=== PATIENT | female | born 1955 | race Caucasian/White ===

== ENCOUNTER 2022-12-12 21:05 | Inpatient (IN) | payer MEDICARE, MEDICAID ==
[~2022-12-12] VITALS: Ht 157.5 cm; Wt 88.0 kg
[~2022-12-12 21:05] MED LIST: ASPI-1406 MT; ATOR10TA69 MT; LEVO500T2 MT
[2022-12-12 22:15] LABS: HEMATOCRIT. 33.9 % (36.0-48.0); HEMOGLOBIN. 11.5 g/dL (12.0-16.0); MEAN CORPUSCULAR HEMOGLOBIN 29.9 pg (28.0-32.0); MEAN CORPUSCULAR VOLUME 88.3 fL (81.0-99.0); MEAN PLATELET VOLUME 7.4 fl (7.4-10.4); PLATELET 137 x1000/uL (130-400); RED BLOOD CELL COUNT 3.84 mill/uL (4.2-5.4); RED CELL DISTRIBUTION WIDTH 14.6 % (11.6-14.6)
[2022-12-12] MEDS ORDERED: CEFTRIAXONE 1GM PREMIX 50 ML IV ONE (22:15)
[2022-12-12] MEDS ORDERED: SODIUM CHLORIDE 0.9% 1000ML BAG (SEPSIS BOLUS) IV ONE (22:15)
[2022-12-12] MEDS ORDERED: AZITHROMYCIN 500MG/250ML 250 ML IV ONE (22:15)
[2022-12-12 22:26] LABS: CHLORIDE 107 mEq/L (98-107)
[2022-12-12] MEDS ORDERED: ASPIRIN 81MG TABLET PO ONE (22:30)
[2022-12-12 23:02] LABS: PLATELET ESTIMATE NORMAL
[2022-12-13] MEDS ORDERED: ASPIRIN 81MG TABLET PO NR (02:00)
[2022-12-13] MEDS ORDERED: AZITHROMYCIN 500MG/250ML 250 ML IV NR (02:00)
[2022-12-13] MEDS ORDERED: CEFTRIAXONE 1GM PREMIX 50 ML IV NR (02:00)
[2022-12-13] MEDS ORDERED: DEXTROSE 50% WATER 50ML SYRINGE IV PRN (02:30)
[2022-12-13] MEDS ORDERED: CLONIDINE 0.1MG TABLET PO PRN (02:30)
[2022-12-13] MEDS ORDERED: ACETAMINOPHEN 325MG TABLET PO PRN (02:30)
[2022-12-13] MEDS ORDERED: CEFTRIAXONE 1GM PREMIX 50 ML IV ONE (02:30)
[2022-12-13] MEDS ORDERED: ONDANSETRON HCL 4MG/2ML INJ IV PRN (02:30)
[2022-12-13] MEDS ORDERED: MECLIZINE 25MG TABLET PO NR (02:30)
[2022-12-13] MEDS ORDERED: IPRATROPIUM/ALBUTEROL 0.5-3(2.5)MG/3ML NEB HHN PRN (02:30)
[2022-12-13] MEDS ORDERED: IPRATROPIUM BROMIDE (0.02%) 0.5MG/2.5ML NEB HHN PRN (02:45)
[2022-12-13] MEDS ORDERED: ALBUTEROL (0.083%) 2.5MG/3ML NEB HHN PRN (02:45)
[2022-12-13 03:11] LABS: CLARITY URINE CLEAR (CLEAR); COLOR URINE YELLOW (YELLOW); KETONES URINE NEGATIVE (NEGATIVE); LEUKOCYTE ESTERASE URINE 1+ (NEGATIVE); NITRITE URINE POSITIVE (NEGATIVE); OCCULT BLOOD URINE NEGATIVE (NEGATIVE); PH URINE 5.5 (4.5-8.0); PROTEIN URINE TRACE (NEGATIVE); SPECIFIC GRAVITY URINE 1.016 (1.005-1.030)
[2022-12-13 03:30] LABS: *AMPHETAMINES SCREEN URINE NEGATIVE (NEGATIVE); *BARBITURATES SCREEN URINE NEGATIVE (NEGATIVE); *BENZODIAZEPINES SCREEN URINE NEGATIVE (NEGATIVE); *COCAINE SCREEN URINE NEGATIVE (NEGATIVE); CANNABINOID URINE SCREEN NEGATIVE (NEGATIVE); METHADONE URINE SCREEN NEGATIVE (NEGATIVE); OPIATES URINE SCREEN NEGATIVE (NEGATIVE); PHENCYCLIDINE URINE SCREEN NEGATIVE (NEGATIVE)
[2022-12-13] MEDS: ACETAMINOPHEN 325MG TABLET PO PRN ×2 (03:47→07:37)
[2022-12-13 03:49] LABS: D-DIMER 1.09 mg/L FEU (<0.50); PROTHROMBIN TIME 10.3 sec (9.6-11.0)
[2022-12-13 03:56] LABS: PHOSPHORUS 3.3 mg/dL (2.5-4.9)
[2022-12-13 04:24] LABS: VITAMIN B12 SERUM 552 pg/mL (211-911)
[2022-12-13] MEDS ORDERED: MAGNESIUM 2 G PREMIX 50 ML IV NR (04:30)
[2022-12-13] MEDS: BLOOD SUGAR DIAGNOSTIC STRIP TEST SCH ×4 (06:30→21:56)
[2022-12-13] MEDS: LOSARTAN POTASSIUM 100 MG TABLET PO SCH (09:00)
[2022-12-13] MEDS: HYDRALAZINE HCL 25MG TABLET PO SCH ×2 (09:00→21:56)
[2022-12-13] MEDS: AMLODIPINE 10MG TABLET PO SCH (09:00)
[2022-12-13 11:00] VITALS: BP 109/52
[2022-12-13 11:24] VITALS: BP 109/52
[2022-12-13] MEDS: GABAPENTIN 300MG CAPSULE PO SCH ×2 (11:27→21:52)
[2022-12-13] MEDS: CLOPIDOGREL 75MG TABLET PO SCH (11:27)
[2022-12-13] MEDS: ENOXAPARIN 30MG/0.3ML SYR SUBCUT SCH ×2 (11:29→21:52)
[2022-12-13] MEDS: PANTOPRAZOLE SODIUM 40 MG/VIAL IV SCH (11:32)
[2022-12-13] MEDS: INSULIN LISPRO 100 UNITS/ML SUBCUT SCH ×3 (11:33→21:57)
[2022-12-13] MEDS ORDERED: CLOP-31 MT (13:27)
[2022-12-13] MEDS ORDERED: SITA100T11 MT (13:27)
[2022-12-13] MEDS ORDERED: GABA-532 MT (13:27)
[2022-12-13] MEDS ORDERED: OMEP40CA20 MT (13:27)
[2022-12-13] MEDS ORDERED: LOSA100T32 MT (13:27)
[2022-12-13] MEDS ORDERED: HYDR-4134 MT (13:27)
[2022-12-13] MEDS ORDERED: ATOR-2 MT (13:27)
[2022-12-13] MEDS ORDERED: AMLO10TA80 MT (13:27)
[2022-12-13] MEDS ORDERED: MULT-1146 MT (13:27)
[2022-12-13] MEDS: DEXT 5%/0.9% NACL 1,000 ML IV SCH (14:37)
[2022-12-13 15:43] VITALS: BP 112/53
[2022-12-13 20:00] VITALS: BP 136/73
[2022-12-13 20:50] VITALS: BP 125/53
[2022-12-13] MEDS ORDERED: INSULIN LISPRO 100 UNITS/ML SUBCUT SCH (21:00)
[2022-12-13] MEDS ORDERED: ATORVASTATIN CALCIUM 40MG TABLET PO SCH (21:00)
[2022-12-13] MEDS: ATORVASTATIN CALCIUM 40MG TABLET PO SCH (21:56)
[2022-12-14 00:24] VITALS: BP 126/56
[2022-12-14] MEDS: AZITHROMYCIN 500MG in DEXTROSE 5% WATER 250ML IV SCH (00:59)
[2022-12-14] MEDS ORDERED: AZITHROMYCIN 500MG/250ML 250 ML IV SCH (03:00)
[2022-12-14] MEDS: CEFTRIAXONE 1,000 MG in DEXTROSE 5% WATER 50 ML IV SCH (03:08)
[2022-12-14 04:00] VITALS: BP 122/57
[2022-12-14] MEDS: DEXT 5%/0.9% NACL 1,000 ML IV SCH ×2 (05:14→20:19)
[2022-12-14] MEDS: GABAPENTIN 300MG CAPSULE PO SCH ×3 (05:34→20:18)
[2022-12-14 06:32] LABS: BASOPHILS % 0.2 % (0.0-2.0); EOSINOPHILS % 2.8 % (0.0-5.0); HEMATOCRIT. 27.4 % (36.0-48.0); HEMOGLOBIN. 9.4 g/dL (12.0-16.0); LYMPHOCYTES % 21.2 % (20.0-50.0); MEAN CORPUSCULAR HEMOGLOBIN 30.9 pg (28.0-32.0); MEAN CORPUSCULAR VOLUME 90.5 fL (81.0-99.0); NEUTROPHILS % 64.8 % (40.0-76.0); PLATELET 94 x1000/uL (130-400); RED BLOOD CELL COUNT 3.03 mill/uL (4.2-5.4); RED CELL DISTRIBUTION WIDTH 14.6 % (11.6-14.6)
[2022-12-14 07:30] LABS: CHLORIDE 112 mEq/L (98-107)
[2022-12-14] MEDS: BLOOD SUGAR DIAGNOSTIC STRIP TEST SCH ×4 (07:40→20:18)
[2022-12-14 07:48] LABS: HDL CHOLESTEROL 40 mg/dL (40-59); LDL CHOLESTEROL 46 mg/dL (5-100); T4 FREE 1.19 ng/dL (0.76-1.46)
[2022-12-14 08:00] VITALS: BP 128/79
[2022-12-14 08:11] LABS: VITAMIN D 25-OH 50.5 ng/mL (30.0-100.0)
[2022-12-14] MEDS: ASPIRIN 81MG EC TABLET PO SCH (09:35)
[2022-12-14] MEDS: ENOXAPARIN 30MG/0.3ML SYR SUBCUT SCH (09:35)
[2022-12-14] MEDS: HYDRALAZINE HCL 25MG TABLET PO SCH ×2 (09:36→20:18)
[2022-12-14] MEDS: AMLODIPINE 10MG TABLET PO SCH (09:36)
[2022-12-14] MEDS: LOSARTAN POTASSIUM 100 MG TABLET PO SCH (09:36)
[2022-12-14] MEDS: CLOPIDOGREL 75MG TABLET PO SCH (09:36)
[2022-12-14] MEDS: PANTOPRAZOLE SODIUM 40 MG/VIAL IV SCH (09:37)
[2022-12-14] MEDS: INSULIN LISPRO 100 UNITS/ML SUBCUT SCH ×4 (09:38→20:17)
[2022-12-14] MEDS ORDERED: POTASSIUM CHLORIDE 20MEQ/PACKET PO NR (11:15)
[2022-12-14 12:00] VITALS: BP 119/62
[2022-12-14 13:31] LABS: PHOSPHORUS 2.4 mg/dL (2.5-4.9)
[2022-12-14] MEDS ORDERED: POTASSIUM CHLORIDE INJ 40 MEQ in DEXT 5% WATER 500 ML IV NR (14:00)
[2022-12-14 16:00] VITALS: BP 136/77
[2022-12-14] MEDS: ACETAMINOPHEN 325MG TABLET PO PRN (16:27)
[2022-12-14 20:00] VITALS: BP 139/62
[2022-12-14] MEDS: ATORVASTATIN CALCIUM 40MG TABLET PO SCH (20:18)
[2022-12-15] VITALS: BP 122/62
[2022-12-15] MEDS: AZITHROMYCIN 500MG in DEXTROSE 5% WATER 250ML IV SCH (00:29)
[2022-12-15] MEDS: CEFTRIAXONE 1,000 MG in DEXTROSE 5% WATER 50 ML IV SCH (03:13)
[2022-12-15 04:00] VITALS: BP 115/65
[2022-12-15] MEDS: GABAPENTIN 300MG CAPSULE PO SCH ×3 (06:56→22:17)
[2022-12-15] MEDS: BLOOD SUGAR DIAGNOSTIC STRIP TEST SCH ×4 (07:01→21:42)
[2022-12-15] MEDS: INSULIN LISPRO 100 UNITS/ML SUBCUT SCH ×4 (07:01→22:19)
[2022-12-15 07:39] LABS: BASOPHILS % 0.4 % (0.0-2.0); EOSINOPHILS % 3.8 % (0.0-5.0); HEMATOCRIT. 29.3 % (36.0-48.0); HEMOGLOBIN. 10.3 g/dL (12.0-16.0); LYMPHOCYTES % 18.7 % (20.0-50.0); MEAN CORPUSCULAR HEMOGLOBIN 30.7 pg (28.0-32.0); MEAN CORPUSCULAR VOLUME 87.3 fL (81.0-99.0); MEAN PLATELET VOLUME 7.9 fl (7.4-10.4); MONOCYTES % 11.5 % (2.0-8.0); NEUTROPHILS % 65.6 % (40.0-76.0); PLATELET 118 x1000/uL (130-400); RED BLOOD CELL COUNT 3.36 mill/uL (4.2-5.4); RED CELL DISTRIBUTION WIDTH 14.1 % (11.6-14.6)
[2022-12-15 08:00] VITALS: BP 141/68
[2022-12-15] MEDS: AMLODIPINE 10MG TABLET PO SCH (08:43)
[2022-12-15] MEDS: CLOPIDOGREL 75MG TABLET PO SCH (08:43)
[2022-12-15] MEDS: LOSARTAN POTASSIUM 100 MG TABLET PO SCH (08:43)
[2022-12-15] MEDS: ASPIRIN 81MG EC TABLET PO SCH (08:43)
[2022-12-15] MEDS: HYDRALAZINE HCL 25MG TABLET PO SCH ×2 (08:44→20:07)
[2022-12-15] MEDS: ACETAMINOPHEN 325MG TABLET PO PRN (08:46)
[2022-12-15 09:23] LABS: CHLORIDE 110 mEq/L (98-107)
[2022-12-15] MEDS: DEXT 5%/0.9% NACL 1,000 ML IV SCH ×2 (10:45→22:20)
[2022-12-15] MEDS: PANTOPRAZOLE SODIUM 40 MG/VIAL IV SCH (10:45)
[2022-12-15 12:00] VITALS: BP 124/61
[2022-12-15] MEDS: ENOXAPARIN 40MG/0.4ML SYR SUBCUT SCH (12:29)
[2022-12-15 16:00] VITALS: BP 97/62
[2022-12-15 20:00] VITALS: BP 127/74
[2022-12-15] MEDS: ATORVASTATIN CALCIUM 40MG TABLET PO SCH (20:06)
[2022-12-16] VITALS: BP 139/66
[2022-12-16] MEDS: AZITHROMYCIN 500MG in DEXTROSE 5% WATER 250ML IV SCH (00:34)
[2022-12-16] MEDS: CEFTRIAXONE 1,000 MG in DEXTROSE 5% WATER 50 ML IV SCH (02:15)
[2022-12-16 04:00] VITALS: BP 140/64
[2022-12-16] MEDS: GABAPENTIN 300MG CAPSULE PO SCH (06:15)
[2022-12-16 07:33] LABS: BASOPHILS % 0.3 % (0.0-2.0); EOSINOPHILS % 3.9 % (0.0-5.0); HEMATOCRIT. 29.9 % (36.0-48.0); HEMOGLOBIN. 10.3 g/dL (12.0-16.0); LYMPHOCYTES % 20.8 % (20.0-50.0); MEAN CORPUSCULAR VOLUME 87.5 fL (81.0-99.0); MEAN PLATELET VOLUME 7.6 fl (7.4-10.4); MONOCYTES % 9.7 % (2.0-8.0); NEUTROPHILS % 65.3 % (40.0-76.0); PLATELET 135 x1000/uL (130-400); RED BLOOD CELL COUNT 3.42 mill/uL (4.2-5.4); RED CELL DISTRIBUTION WIDTH 13.9 % (11.6-14.6)
[2022-12-16] MEDS: BLOOD SUGAR DIAGNOSTIC STRIP TEST SCH (07:35)
[2022-12-16 07:48] LABS: CHLORIDE 106 mEq/L (98-107)
[2022-12-16 08:00] VITALS: BP 137/67
[2022-12-16] MEDS: HYDRALAZINE HCL 25MG TABLET PO SCH (08:17)
[2022-12-16] MEDS: LOSARTAN POTASSIUM 100 MG TABLET PO SCH (08:17)
[2022-12-16] MEDS: ASPIRIN 81MG EC TABLET PO SCH (08:17)
[2022-12-16] MEDS: CLOPIDOGREL 75MG TABLET PO SCH (08:17)
[2022-12-16] MEDS: ENOXAPARIN 40MG/0.4ML SYR SUBCUT SCH (08:18)
[2022-12-16] MEDS: AMLODIPINE 10MG TABLET PO SCH (08:18)
[2022-12-16] MEDS ORDERED: POTASSIUM CHLORIDE 20MEQ TABLET SR PO NR (08:30)
[2022-12-16] MEDS: INSULIN LISPRO 100 UNITS/ML SUBCUT SCH (08:35)
[2022-12-16] MEDS: PANTOPRAZOLE SODIUM 40 MG/VIAL IV SCH (09:21)
[2022-12-16 11:18] VITALS: BP 137/67
[2022-12-16 12:00] VITALS: BP 123/67
== END 2022-12-16 12:10 | disposition home health service (06) | DRG 690 ==
LOC: ER 21:05 → EDBEDREQ 12-13 02:24 → EDBEDREQTM 12-13 02:24 → MICUSO 12-13 02:32 → 7WST 12-13 10:30 → 6EST 12-14 22:16
PROVIDERS: ADMIT Student in an Organized Health Care Education/Training Program; ATTEND Hospitalist
PROC: 4A00X4Z Measurement of Central Nervous Electrical Activity, External Approach (ICD-10-PCS; principal; 2022-12-14)
DX: N39.0 Urinary tract infection, site not specified (principal); I69.354 Hemiplegia and hemiparesis following cerebral infarction affecting left non-dominant side; G61.0 Guillain-Barre syndrome; E11.9 Type 2 diabetes mellitus without complications; E83.42 Hypomagnesemia; I10 Essential (primary) hypertension; Z20.822 Contact with and (suspected) exposure to COVID-19; E87.6 Hypokalemia; K21.9 Gastro-esophageal reflux disease without esophagitis; I69.30 Unspecified sequelae of cerebral infarction; Z74.01 Bed confinement status; Z90.5 Acquired absence of kidney; Z79.84 Long term (current) use of oral hypoglycemic drugs; R62.7 Adult failure to thrive
CPT/HCPCS: 36415; 71045; 73521; 80048; 80053; 80061; 80305; 81003; 82306; 82607; 82962; 83036; 83605; 83735; 83880; 84100; 84145; 84439; 84443; 84481; 84484; 85025; 85379; 85651; 87077; 87186; 87426; 87804; 93005; 93880; 93970; 95816; 97162; 97166; 99285; C9113; J0456; J0696; J1650; J1815; J3475; J3480; J7030; J7042; J7060; J8597; A4315